=== PATIENT | female | born 1970 | race Two or more races ===

== ENCOUNTER 2019-11-07 17:22 | Emergency (ER) | payer MEDICAID ==
[~2019-11-07] VITALS: Ht 157.5 cm; Wt 86.6 kg
[2019-11-07 17:29] VITALS: BP 148/89
--- NOTE | 2019-11-07 17:40 | NUR ---
BENI CHAVARRIA AT BEDSIDE FOR EVAL.
--- NOTE | 2019-11-07 17:45 | NUR ---
TECH AT BEDSIDE FOR EKG.
[2019-11-07] MEDS ORDERED: IBUPROFEN 600 MG TABLET PO ONE (17:47)
[2019-11-07] MEDS: IBUPROFEN 600 MG TABLET PO ONE (17:48)
--- NOTE | 2019-11-07 17:52 | NUR ---
REPA[employer]ER [employer] AT BEDSIDE FOR XRAY.
--- NOTE | 2019-11-07 18:22 | NUR ---
Patient discharged to home in stable condition. Written and verbal after care instructions given. Patient verbalizes understanding of instruction.
== END 2019-11-07 18:24 | disposition home or self-care (01) ==
LOC: ER 17:25
DX: R07.89 Other chest pain (principal); J45.909 Unspecified asthma, uncomplicated; V49.59XA Passenger injured in collision with other motor vehicles in traffic accident, initial encounter; Y93.89 Activity, other specified; Y92.413 State road as the place of occurrence of the external cause; Y99.8 Other external cause status
CPT/HCPCS: 71045-TC